=== PATIENT | male | born 1980 | race Caucasian/White ===

== ENCOUNTER 2024-09-22 00:12 | Emergency (ER) | payer BC, SELFPAY ==
[2024-09-22 00:13] VITALS: BP 179/93; PULSE 78; RESP 20; TEMP 36.9; O2SAT 96; BMI 40.2
[2024-09-22 00:27] VITALS: BP 181/96; PULSE 83; RESP 16; TEMP 36.4; O2SAT 98
[2024-09-22 00:33] VITALS: BP 166/86; PULSE 77; RESP 18; O2SAT 99
--- NOTE | 2024-09-22 00:34 | ED_ITS ---
HPI - General Adult General Chief complaint: General Medical Stated complaint: high bp Time Seen by Provider: 09/22/24 00:23 History of Present Illness ED Provider: Stephen Stovall MD HPI narrative: [age] male presents after taking his own blood pressure at home to 10s systolic just started lisinopril he has been on metoprolol several days. No symptoms Related Data Allergies Allergy/AdvReac Type Severity Reaction Status Date / Time adhesive tape AdvReac Rash Verified 09/22/24 00:18 REPLACED BY [facility] Social History Social History Smoked in Last 30 Days: No Advance Directives: No Advance Directives Information Provided: Yes Physical Exam ED Exam Exam: EXAM: Gen: Alert, awake, well appearing, well hydrated. Head: Atraumatic Eyes: Anicteric, Normal conjunctiva. ENT: Moist mucosa, no pallor. ? Neck: Supple. Skin: ?No observable rash or bruising on exposed or examined skin Respiratory: Breathing comfortably, No distress.Clear to auscultation bilaterally, symmetric chest expansion, No wheeze, rales, ronchi. Cardiovascular: Regular rate and rhythm. No murmurs or rub. Well perfused periphery, warm extremities. No edema. ? Abdominal: No focal tenderness. Soft, no objective distension. No palpable masses or obvious organomegaly. ?No guarding, no rebound tenderness or other peritoneal findings. : No flank tenderness. Neuro: Alert. Gross movement of all extremities intact. ? Psych: Calm. Cooperative. MSK: No grossly visible deformity. Vital signs: See flowsheet Vital Signs: Vital Signs - 24 hr 09/22/24 00:13 09/22/24 00:27 09/22/24 00:33 Temperature 98.5 F 97.5 F Pulse Rate 78 83 77 Respiratory Rate 20 16 18 Blood Pressure 179/93 H 181/96 H 166/86 H Pulse Oximetry 96 98 99 Oxygen Delivery Method Room Air Room Air Room Air 09/22/24 00:41 Temperature 97.5 F Pulse Rate 77 Respiratory Rate 18 Blood Pressure 166/86 H Pulse Oximetry 99 Oxygen Delivery Method Room Air BMI result Body Mass Index 40.2 Medical Decision Making Medical Decision Making MDM Narrative: Medical Decision Makin-year-old male overweight with hypertension previously only on metoprolol started lisinopril just today with the 1st dose in the morning. Completely asymptomatic but routinely checking his blood pressure, to 10s scared him he called his PCP told him to come for evaluation. On extensive interview of the patient reports no acute symptoms at all. He feels a little bit anxious from seeing such a high number. Reassuring cursory examination. No indication for ECG blood work or other testing given the asymptomatic nature and rapid improvement of blood pressure without any aggressive treatments in the ED. Presumed asymptomatic hypertension with physician reassurance, guidance and return precautions Testing Interpreted Independently: Not Applicable Radiology or Lab testing Results Reviewed: Not Applicable Consults: Not Applicable Independent Historians/External Chart Reviews: Not Applicable Social Determinants of Health Impacting MDM/Planning: Not Applicable Discharge Plan Discharge Clinical Impression: Asymptomatic hypertension Patient Disposition: Home, Self-Care Instructions: Hypertension (ED) Additional Instructions: As we discussed try to take a blood pressure trend at home or at work right down the numbers to discuss with your primary doctor blood pressure can fluctuate throughout the day. Do not panic at any specific number work on relaxation techniques diet weight loss and continue with the medication. Check him with your doctor. Interventions: ED Discharge Assessment Last Done: 09/22/24 00:41 Discharge Date/Time: 09/22/24 00:56 Print Language: Kazakh
[2024-09-22 00:41] VITALS: BP 166/86; PULSE 77; RESP 18; TEMP 36.4; O2SAT 99
--- OUTSIDE RECORDS SUMMARY | 2024-09-22 00:55 | XMS_ITS | Encounter Summary ---
Author Organization [facility] Address [address] [facility] [address] [place] [address] Phone Care Team Providers Care Sleeve Sewer Name Role Phone Vin Velasco MD Primary Care Provider [phone] Reason for Visit * Reason Onset Date Comments Hypertension 09/21/2024 After hours call Encounter Details Date Type Department Care Team (Late st Contact Info) Description 09/21/2024 Nurse Triage [facility] [address] [employer] [facility] [address] [place] [address] Fabian Potter PA-C [address] [employer] [facility] [address] [place] [phone] [email or web address] Hypertension (After hours call/) Social History Tobacco Use Types Packs/Day Years Used Date Smoking Tobacco: Never Smokeless Tobacco: Never Alcohol Use Standard Drinks/Week Comments Yes 0 (1 standard drink = 0.6 oz pur e alcohol) rarely, 1-2 x year Child or Family Care Answer Date Record ed Do you have problems with on e of the following making it difficult for you to work, study, or receive health care? No 09/29/2021 Education Answer Date Recorded Are you interested in more education? Not on sanket e 10/07/2023 Are you concerned about learning? Not on file 10/07/2023 No 10/07/2023 No 10/07/2023 Food Answer Date Recorded Within the past 6 months we worried whether our food would run out before we got money to buy more. Never True 09/29/2021 Within the past 6 months the food we bought just didn't last and we didn't have enough money to get more. Never True Residential Stability Answer Date Recor ded What is your housing situation today? I have kai reeves 09/29/2021 How many times have you move d in the past 12 months? Zero (I did not move) 09/29/2021 Paying for Meds Answer Date Recorded Do you have trouble paying for medicines? No 09/29/2021 Paying Utility Bills Answer Date Record ed Do you have trouble paying your heating or elect ricity bill? No 09/29/2021 Transportation Answer Date Recorded Has the lack of transportati on kept you from medical appointments or from getting medications? No 09/29/2021 Unemployment Answer Date Recorded Are you currently unemployed or working on a part-time or temporary basis, and looking for work? No 09/29/2021 Digital Access Answer Date Recorded No 07/27/2022 No 07/27/2022 Reliable internet access at home? Not on file 07/27/2022 Device with a working camera? Not on file Sex and Gender Information Value Date Recorded Sex Assigned at Male 04/24/2020 4:04 PM EST Legal Sex Male 9:50 AM EST Gender Identity Male 04/24/2020 4:04 PM EST Sexual Orientation Straight 04/24/2020 4: 04 PM EST documented as of this encounter Progress Notes * Fabain Potter PA-C - 09/21/2024 11:34 PM EDT After Hours Call Note 09/21/2024 11:35 PM Caller: Patient Chief complaint: HTN HPI: His BP earlier in the office was 166/86. After work it was 192/110 and he re-checked it a few times and right now his BP with an automated cuff is 218/115. This was checked by his who is a nurse and she confirmed this is accurate. He denies CP/SOB, headache, vision change, focal neurological sign/symptoms, etc and says he generally feels fine and is at his baseline. He did have a high salt load tonight but says he's been drinking fluids and urinating normally. Plan: While normally even very high blood pressure in an asymptomatic patient is not an emergency and can be discussed with the office during business hours I think given how high his blood pressure is I would like to play it safe and have him evaluated and treated in the emergency department. He is in agreement and will head to [facility]. Medications prescribed: n/a Reason for Disposition [1] Systolic BP >= 200 OR Diastolic >= 120 AND [2] having NO cardiac or neurologic symptoms Protocols used: Blood Pressure - [facility] Nurse Triage Encounter Note Reason for Triage Herb Junior contacted office for Hypertension After hours call Call Disposition Go To Ed Now Disposition Comments: Patient/caregiver understands and will follow disposition: Yes Initial Symptom Screening and Assessment IA None Care Advice Patient/Caregiver understands and will follow care advice?: Yes, plans to follow advice Blood Pressure - [facility] Fabian Potter PA-C TueSep 21, 2024 11:43 PM Care Advice SEE HCP (OR PCP TRIAGE) WITHIN 4 HOURS: * IF OFFICE WILL BE OPEN: You need to be seen within the next 3 or 4 hours. Call your doctor (or BACK SHOE WORKER/PA) now or as soon as the office opens. * IF OFFICE WILL BE CLOSED AND NO PCP (PRIMARY CARE PROVIDER) SECOND-LEVEL TRIAGE: You need to be seen within the next 3 or 4 hours. A nearby Urgent Care Center (UCC) is often a good source of care. Another choice is to go to the ED. Go sooner if you become worse. * IF OFFICE WILL BE CLOSED AND PCP SECOND-LEVEL TRIAGE REQUIRED: You may need to be seen. Your doctor (or BACK SHOE WORKER/PA) will want to talk with you to decide what's best. I'll page the on-call provider now. If you haven't heard from the provider (or me) within 30 minutes, call again. NOTE: If on-call provider can't be reached, send to UCC or ED. NOTE TO TRIAGER: * Use nurse judgment to select the most appropriate source of care. * Consider both the urgency of the patient's symptoms AND what resources may be needed to evaluate and manage the patient. SOURCES OF CARE: * ED: Patients who may need surgery or hospital admission need to be sent to an ED. So do most patients with serious symptoms or complex medical problems. * UCC: Some UCCs can manage patients who are stable and have less serious symptoms (e.g., minor illnesses and injuries). The triager must know the [facility] capabilities before sending a patient there. If unsure, call ahead. * OFFICE: If patient sounds stable and not seriously ill, consult PCP (or follow your office policy) to see if patient can be seen NOW in office. CARE ADVICE given per High Blood Pressure (Adult) guideline. Patient will call back with additional questions or if symptoms change or worsen Fabian Potter PA-C Reason for Disposition and Assessment documented in this encounter Plan of Treatment Upcoming Encounters Date Type Department Care Team (Late st Contact Info) Description 11/20/2024 11:30 AM EDT Office Visit [facility] Internal Medicine [address] [place] [address] Vin Velasco MD [address] [place] [address] [email or web address] documented as of this encounter Visit Diagnoses Not on filedocumented in this encounter Additional Health Concerns Assessment Noted Time PHQ-9 Depression Total Score: 18 025 10:38 PM EDT PHQ-2 Depression Total Score: 5 09/21/19 25 10:38 PM EDT documented as of this encounter Care Teams Sleeve Sewer Relationship Specialty Start Date End Date Vin Velasco MD [address] [place] [address] PCP - General Internal Medicine 03/03/20 documented as of this encounter Additional Source Comments The information contained in this document represents components of the legal health record. It is not the complete legal health record.[facility]
== END 2024-09-22 00:56 | disposition home or self-care (01) ==
LOC: HO.ED 00:53
PROVIDERS: Emergency Provider Emergency Medicine; PCP Internal Medicine
DX: I10 Essential (primary) hypertension (principal)
CPT/HCPCS: 99282; 99284